=== PATIENT | female | born 1975 | race Two or more races ===

== ENCOUNTER → 2024-12-07 | Outpatient (CLI) | payer BC, SELFPAY ==
--- NOTE | 2024-12-07 11:30 | XR_ITS ---
Examination: Screening digital mammography, bilateral Computer aided detection 3-D breast Tomosynthesis, bilateral Date and time of exam: December 07, 2024 11:30 AM Compared to mammograms dating to July 04, 2019 Indication: Screening Technique: Nonmagnified MLO, CC views of the breasts to been obtained, reconstructed from 3-D Tomosynthesis images. R2 computer aided detection program utilized for evaluation of suspicious masses and/or abnormal calcifications. 3-D Tomosynthesis images obtained. Findings: Scattered areas of fibroglandular density. Skin lesion outer left breast Benign calcifications. No interval suspicious masses Impression: BI-RADS category II: Benign Findings. Recommend 1 year follow-up mammogram.
== END | disposition home or self-care (01) ==
LOC: CDIM 11:10
PROVIDERS: PCP Nurse Practitioner Family; Referring Provider Nurse Practitioner Family; Visit Provider Nurse Practitioner Family
DX: Z12.31 Encounter for screening mammogram for malignant neoplasm of breast (principal); R92.323 Mammographic fibroglandular density, bilateral breasts; R92.1 Mammographic calcification found on diagnostic imaging of breast
CPT/HCPCS: 77063; 77067

== ENCOUNTER 2025-05-10 06:37 | Emergency (ER) | payer BC, SELFPAY ==
[2025-05-10 06:39] VITALS: BP 155/85; PULSE 80; RESP 18; TEMP 36.9; O2SAT 99
[2025-05-10 06:43] VITALS: BMI 35.5
--- NOTE | 2025-05-10 06:53 | XR_ITS ---
Examination: Shoulder, left, 3 views Technique: Shoulder AP internal rotation, AP external rotation, Y view shoulder, 3 views Exam date and time : May 10, 2025, 0728 hours INDICATIONS: Left shoulder pain beginning 10 days ago. FINDINGS: No shoulder fracture or dislocation. No arthritic change. No calcific tendinitis IMPRESSION: No fracture or calcific tendinitis
--- NOTE | 2025-05-10 06:53 | XR_ITS ---
Examination: Ribs, left, with PA chest, 5 views Technique: Chest PA, RIBS AP, RPO, LPO, AP coned lower ribs 5 views Exam date and time: May 10, 2025, 0728 hours INDICATIONS: Left-sided rib pain shoulder pain beginning 10 days ago Findings: Normal heart size Lungs are clear. Bones of the shoulder and ribs appear intact IMPRESSION: No active disease
[2025-05-10] MEDS: KETOROLAC INJ 60 MG/2 ML VIAL 30 MG IM (07:10)
--- NOTE | 2025-05-10 08:23 | PD.EDUPEX ---
Upper Extremity Injury RME/HPI General Chief Complaint: General Adult/Misc Complain Stated Complaint: L SHOULDER AND AXILLARY PAIN Time Seen by Provider: 05/10/25 06:40 Source: patient Arrival date/time: 05/10/25 06:37 49-year-old female with no known medical history presents to the emergency room with a chief complaint of tenderness and pain to her left shoulder that radiates down to her left axillary x 1 week Mode of arrival: ambulatory Limitations: no limitations Related Data Allergies Allergy/AdvReac Type Severity Reaction Status Date / Time No Known Allergies Allergy Verified 05/10/25 06:45 Review of Systems Review of Systems Systems Reviewed: All systems reviewed, normal except as documented Constitutional Constitutional: Reports system reviewed and no additional complaints, except as documented, Denies fatigue, Denies fever(s), Denies headache(s) and Denies weakness Eyes Eyes: Reports system reviewed and no additional complaints, except as documented, Denies blurry vision and Denies change in vision ENT Ears, Nose, Mouth, and Throat: Reports system reviewed and no additional complaints, except as documented, Denies otalgia, Denies headache(s), Denies nasal congestion, Denies throat swelling and Denies vertigo Cardiovascular Cardiovascular: Reports system reviewed and no additional complaints, except as documented, Denies chest pain, Denies dyspnea and Denies dyspnea on exertion Respiratory Respiratory: Reports system reviewed and no additional complaints, except as documented, Denies chest congestion, Denies cough, Denies dyspnea, Denies dyspnea on exertion and Denies wheezing Gastrointestinal Gastrointestinal: Reports system reviewed and no additional complaints, except as documented, Denies abdominal pain, Denies cramping, Denies nausea and Denies vomiting Genitourinary Genitourinary: Reports system reviewed and no additional complaints, except as documented Musculoskeletal Musculoskeletal: Reports system reviewed and no additional complaints, except as documented, Reports arthralgias, Denies back pain and Reports joint swelling Integumentary/Breasts Skin/Breast: Reports system reviewed and no additional complaints, except as documented and Denies wounds Neurologic Neurologic: Reports system reviewed and no additional complaints, except as documented, Denies confusion, Denies headache(s), Denies lack of coordination, Denies vertigo and Denies weakness Psychiatric Psychiatric: Reports system reviewed and no additional complaints, except as documented, Denies anxiety, Denies confusion, Denies depression, Denies paranoia, Denies suicidal ideation and Denies tactile hallucinations Endocrine Endocrine: Reports system reviewed and no additional complaints, except as documented and Denies fatigue Hematologic/Lymphatic Hematologic/Lymphatic: Reports system reviewed and no additional complaints, except as documented and Denies lymphadenopathy Allergic/Immunologic Allergic/Immunologic: Reports system reviewed and no additional complaints, except as documented, Denies throat swelling, Denies urticaria and Denies wheezing ED Exam General Limitations: Present no limitations General appearance: Present alert and in no apparent distress Head Head exam: Present atraumatic Eye Eye exam: Present normal appearance, PERRL and EOMI ENT ENT exam: Present normal exam, normal oropharynx and mucous membranes moist Neck Neck exam: Present normal inspection, full ROM and trachea midline Chest Chest inspection: Present normal inspection and symmetric chest wall rise Respiratory Respiratory exam: Present normal lung sounds bilaterally Cardiovascular Cardiovascular exam: Present regular rate, normal rhythm and normal heart sounds Abdominal Exam Abdominal exam: Present soft and normal bowel sounds Extremities Exam Extremities exam: Present normal inspection and full ROM Expanded Upper Extremity Exam Shoulder exam: Present full ROM, tenderness and tenderness over AC joint; Absent swelling or erythema Arm exam: Present normal inspection Elbow exam: Present normal inspection Forearm/Wrist exam: Present normal inspection Hand exam: Present normal inspection Vascular exam: Normal capillary refill Back Exam Back exam: Present normal inspection and full ROM Neurological Exam Neurological exam: Present alert, oriented X3 and CN II-XII intact Psychiatric Psychiatric exam: Present normal affect and normal mood Skin Skin exam: Present warm, dry, intact and normal color Course Quality Measures none Orders Category Date Time Status XR ribs LT min 3V w CXR1V Stat Exams 05/10/25 06:53 Completed XR shoulder LT min 2V Stat Exams 05/10/25 06:53 Completed Ketorolac Inj [Toradol Inj] Med 05/10/25 06:53 Discontinued 30 mg IM X1 ONE Vital Signs Vital signs: Vital Signs Temperature 98.4 F 05/10/25 06:39 Pulse Rate 80 05/10/25 06:39 Respiratory Rate 18 05/10/25 06:39 Blood Pressure 155/85 H 05/10/25 06:39 Pulse Oximetry (%) 99 05/10/25 06:39 Oxygen Delivery Method Room Air 05/10/25 06:39 Extremity Injury MDM Narrative MDM Narrative:: 49-year-old female with no known medical history presents to the emergency room with a chief complaint of tenderness and pain to her left shoulder that radiates down to her left axillary x 1 week Patient is hemodynamically stable and in no apparent distress Physical examination shows tenderness and pain to the patient's left shoulder. Patient has full range of motion to her shoulder. Patient has some point tenderness with palpation. Patient states his pain has been going on for the last week and is now radiating down to her left axilla near her rib cage. X-rays of the shoulder and rib cage were completed and were negative for any acute findings Patient was discharged and educated to follow-up with primary care provider in the next 24 to 48 hours and return to the emergency room for any evidence of worsening signs or symptoms Patient data External records reviewed:: [facility] previous records Clinical information provided by:: patient Social determinants that could affect healthcare access:: none Patient has the following chronic illnesses:: No chronic illness How is presenting disease/condition affected by chronic disease/condition?: no chronic disease Evaluation data The following diagnostics were reviewed and interpreted by me:: lab results and radiology exam(s) Lab and/or radiology exams considered but not ordered:: Labs and radiology exams considered and ordered Interpretation Summary: X-ray left ribs-Findings: Normal heart size Lungs are clear. Bones of the shoulder and ribs appear intact IMPRESSION: No active disease X-ray left shoulder-FINDINGS: No shoulder fracture or dislocation. No arthritic change. No calcific tendinitis IMPRESSION: No fracture or calcific tendinitis Medications / Prescriptions Medications or Prescriptions considered but not ordered:: Medication given Medication administrations:: Medication Administration History Discontinued Medications Ketorolac Tromethamine (Ketorolac Inj 60 Mg/2 Ml Vial) 30 mg IM X1 ONE Stop: 05/10/25 06:54 Last Admin: 05/10/25 07:10 Dose: 30 mg Documented By: GM Medication given Consultations Consultation(s) initiated? (list below): No Diagnosis Upper Extremity Injury Differential Diagnosis: dislocation of shoulder and other (Rib contusion/rib fracture/shoulder fracture) Most likely diagnosis given after review of the tests above:: Shoulder sprain Admission Indicated Admission indicated?: not indicated Admission Request Was there a request for admission?: No Disposition Plan Disposition Plan: Discharge Discharge Attestation Discharge Attestation: The patient and all family members were given an opportunity to ask questions and understood the discharge instructions. Discharge instructions specifically effects, indications for sooner follow up or return to the emergency department, and the expected course of current diagnosis. Patient condition: Stable Discharge Plan Plan Patient Disposition: HOME (Self Care) Discharge Disposition comment: Stable Prescriptions/Referrals Referrals: No Primary/Family,Physician [Primary Care Provider] - In 1 week Problem List Clinical Impression: Shoulder sprain Patient/Caregiver Discharge Instructions Education Materials: ED Shoulder Sprain Additional Instructions: Please follow-up with your primary care provider in the next 24 to 48 hours X-rays of your shoulder and ribs were completed and were negative for any acute findings For any evidence of worsening signs or symptoms return to the emergency room immediately Print Language: Moldovan Stand Alone Forms: Jeannine Award Info., Patient Portal Info Letter PA/HOSPICE EDUCATOR Supervising Physician PA/MAXIMO Supervising Physician: Dr. Nvooa
== END 2025-05-10 09:46 | disposition home or self-care (01) ==
PROVIDERS: Emergency Provider Family Medicine
DX: S43.402A Unspecified sprain of left shoulder joint, initial encounter (principal); X58.XXXA Exposure to other specified factors, initial encounter
CPT/HCPCS: 71101; 73030; 96372; 99282; J1885